=== PATIENT | female | born 2000 | race Caucasian/White ===

== ENCOUNTER 2024-05-02 22:42 | Emergency (ER) | payer OTHER ==
[2024-05-02] MEDS ORDERED: Lidocaine/Transparent Dressing 1 EACH KIT ONE (23:07)
[2024-05-02] MEDS ORDERED: HYDROcodone/Acetaminophen 5/325 mg Tablet ONE (23:20)
== END 2024-05-02 23:28 | disposition home or self-care (01) ==
LOC: CSHERS 22:42
DX: T23.231A Burn of second degree of multiple right fingers (nail), not including thumb, initial encounter (principal); X15.0XXA Contact with hot stove (kitchen), initial encounter; Y93.G3 Activity, cooking and baking; Z79.899 Other long term (current) drug therapy
CPT/HCPCS: 99283